=== PATIENT | male | born 1965 | race Two or more races ===

== ENCOUNTER 2017-08-25 14:03 | Emergency (ER) | payer MEDICAID, OTHER ==
[~2017-08-25] VITALS: Ht 170.2 cm; Wt 100.2 kg
[2017-08-25] MEDS ORDERED: cloNIDine 0.1 mg/24hr 7 DAY PATCH TD ONE (18:30)
[2017-08-25] MEDS ORDERED: cloNIDine HCL 0.1 MG TAB PO ONE (18:45)
[2017-08-25 19:07] VITALS: BP 179/108
== END 2017-08-25 20:05 | disposition home or self-care (01) ==
LOC: ER 14:03
DX: I10 Essential (primary) hypertension (principal)
CPT/HCPCS: 93005

== ENCOUNTER 2019-07-10 21:04 | Emergency (ER) | payer MEDICAID ==
[~2019-07-10] VITALS: Ht 170.2 cm; Wt 97.1 kg
[2019-07-10] MEDS ORDERED: cloNIDine HCL 0.1 MG TAB PO ONE (21:15)
[2019-07-10 21:26] VITALS: BP 182/104
[2019-07-10 22:12] LABS: Basophils # (auto) 0.1 uL; Hemoglobin 17.7 g/dL (13.5-17.5); Monocytes # (auto) 0.9 uL; Neutrophils # (auto) 5.8 uL
[2019-07-10 22:14] LABS: Basophils % (auto) 0.8 % (0.0-2.0); Eosinophils # (auto) 0.3 uL; Eosinophils % (auto) 3.1 % (0.0-7.0); Hematocrit 53.2 % (41.0-53.0); Lymphocytes # (auto) 3.2 uL; Lymphocytes % (auto) 31.5 % (10.0-50.0); Mean Corpuscular Hemoglobin 27.9 pg (28.0-32.0); Mean Corpuscular Hgb Conc. 33.4 g/dL (32.0-36.0); Mean Corpuscular Volume 83.5 fL (80.0-100.0); Monocytes % (auto) 8.6 % (0.0-12.0); Nucleated Red Blood Cells % 0.6 %; Platelet Count (auto) 215 10^3/uL (140-450); Red Blood Cells 6.36 10^6/uL (4.5-5.90); White Blood Cell 10.3 10^3/uL (4.4-10.8)
[2019-07-10 22:30] LABS: Albumin 3.7 g/dL (3.4-5.0); Calcium 9.6 mg/dL (8.5-10.1); Magnesium 2.2 mg/dL (1.6-2.6); Potassium 3.9 mmol/L (3.5-5.1)
[2019-07-10 22:35] LABS: Bilirubin, Total 0.4 mg/dL (0.2-1.0); Total Protein 8.1 g/dL (6.4-8.2)
== END 2019-07-11 00:38 | disposition left against medical advice (07) ==
LOC: ER 21:05
DX: I10 Essential (primary) hypertension (principal); Z53.21 Procedure and treatment not carried out due to patient leaving prior to being seen by health care provider
CPT/HCPCS: 36415; 80053; 83735; 83880; 84484; 85025; 93005